=== PATIENT | female | born 1990 | race Native Hawaiian/Other Pacific Islander ===

== ENCOUNTER 2016-12-31 07:10 | Emergency (ER) | payer OTHER ==
[2016-12-31 07:44] VITALS: BP 113/73; PULSE 62; RESP 16; TEMP 98.1; O2SAT 100
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
--- NOTE | 2017-01-01 09:51 | RAD ---
PROCEDURE: Cervical Spine Radiographs. HISTORY: Pain. COMPARISON: None. FINDINGS: BONES: Alignment maintained. No fracture. Dens Intact. DISC SPACES: Normal. SOFT TISSUES: Normal. No prevertebral soft tissue swelling. OTHER FINDINGS: None. IMPRESSION: Normal cervical spine radiographs
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
== END 2016-12-31 10:19 | disposition home or self-care (01) ==
LOC: H.ER 07:10
DX: Z04.1 Encounter for examination and observation following transport accident (principal); V43.52XA Car driver injured in collision with other type car in traffic accident, initial encounter; Y92.410 Unspecified street and highway as the place of occurrence of the external cause